=== PATIENT | male | born 1950 | race African-American/Black ===

== ENCOUNTER 2022-11-24 08:13 | Emergency (ER) | payer OTHER ==
[~2022-11-24] VITALS: Ht 172.7 cm; Wt 82.0 kg
[2022-11-24 08:20] VITALS: BP 173/93; PULSE 112; RESP 16; O2SAT 98
[2022-11-24] MEDS ORDERED: ACETAMINOPHEN 325MG TABLET PO ONE (09:15)
[2022-11-24 09:27] VITALS: TEMP 100.2
== END 2022-11-24 10:26 | disposition left against medical advice (07) ==
LOC: ER 08:47
DX: R53.1 Weakness (principal); E11.9 Type 2 diabetes mellitus without complications; R05.9 Cough, unspecified
CPT/HCPCS: 71045; 93005; 99283